=== PATIENT | female | born 1975 | race Asian ===

== ENCOUNTER 2018-12-24 08:11 | Outpatient (CLI) | payer BC ==
--- NOTE | 2018-12-24 09:10 | MMO ---
Bilateral MAMMO Bilat Screen [facility]. CLINICAL HISTORY: Patient is 43 years old and is seen for screening. The patient has no family history of breast cancer. The patient has no personal history of cancer. VIEWS: The views performed were: bilateral craniocaudal and bilateral mediolateral oblique. This study has been interpreted with the assistance of computer-aided detection. MAMMOGRAM FINDINGS: The breasts are heterogeneously dense, which could obscure a lesion on mammography. There are no suspicious masses, suspicious calcifications, or new areas of architectural distortion. IMPRESSION: THERE IS NO MAMMOGRAPHIC EVIDENCE OF MALIGNANCY. A ROUTINE FOLLOW-UP MAMMOGRAM IN 1 YEAR IS RECOMMENDED. ACR BI-RADS Category 1 - Negative MAMMOGRAPHY NOTE: 1. A negative mammogram report should not delay a biopsy if a dominant of clinically suspicious mass is present. 2. Approximately 10% to 15% of breast cancers are not detected by mammography. 3. Adenosis and dense breasts may obscure an underlying neoplasm.
== END 2018-12-24 08:12 | disposition home or self-care (01) ==
LOC: SCSMAMMO 08:11
PROVIDERS: ATTEND Family Medicine
DX: Z12.31 Encounter for screening mammogram for malignant neoplasm of breast (principal)
CPT/HCPCS: 77067

== ENCOUNTER 2024-04-11 15:38 | Outpatient (CLI) | payer OTHER | END 2024-04-11 15:39 | disposition home or self-care (01) | LOC: BICRAD 15:38 | PROVIDERS: ATTEND Family Medicine | DX: R76.12 Nonspecific reaction to cell mediated immunity measurement of gamma interferon antigen response without active tuberculosis (principal) | CPT/HCPCS: 71046 ==

== ENCOUNTER 2024-09-08 14:57 | Outpatient (CLI) | payer OTHER | END 2024-09-08 14:58 | disposition home or self-care (01) | LOC: SCSRAD 14:57 | PROVIDERS: ATTEND Family Medicine | DX: M75.82 Other shoulder lesions, left shoulder (principal) ==